=== PATIENT | female | born 1930 | race Caucasian/White ===

== ENCOUNTER 2017-08-17 00:42 | Observation (INO) | payer MEDICARE, OTHER, MEDICAID ==
[2017-08-17] MEDS: SOD CHLORIDE 0.9% 1,000 ML IV (00:57)
[2017-08-17] MEDS: ONDANSETRON 4 MG INJ IV (01:11)
[2017-08-17] MEDS: morphine 4 MG/ML VIAL IV (01:11)
[2017-08-17 01:33] LABS: ADD MAN DIFF? NO
[2017-08-17 01:37] LABS: WHITE BLOOD COUNT 14.4 10^3/ul (4.8-10.8)
[2017-08-17 01:37] LABS: BASOPHIL # 0.1 10^3/ul (0.0-0.1); BASOPHILS % 0.4 % (0.0-2.0); EOSINOPHILS % 0.3 % (0.0-7.0); HEMATOCRIT 35.3 % (37.0-47.0); HEMOGLOBIN 11.1 g/dl (12.0-16.0); LYMPHOCYTES # 1.1 10^3/ul (0.8-2.9); LYMPHOCYTES % 7.8 % (15.0-51.0); MEAN CORPUSCULAR HEMOGLOBIN 25.5 pg (29.0-33.0); MEAN CORPUSCULAR HGB CONC 31.4 g/dl (32.0-37.0); MEAN CORPUSCULAR VOLUME 81.1 fl (82.0-101.0); MEAN PLATELET VOLUME 12.1 fl (7.4-10.4); MONOCYTE # 1.3 10^3/ul (0.3-0.9); MONOCYTES % 9.3 % (0.0-11.0); NEUTROPHIL # 11.8 10^3/ul (1.6-7.5); NEUTROPHILS % 81.5 % (39.0-77.0); PLATELET COUNT 349 10^3/UL (140-415); RED BLOOD COUNT 4.35 10^6/ul (4.20-5.40); RED CELL DISTRIBUTION WIDTH 13.2 % (11.5-14.5)
[2017-08-17 02:07] LABS: ANION GAP 17 (8-16); BLOOD UREA NITROGEN 23 mg/dl (7-20); CALCIUM 8.5 mg/dl (8.4-10.2); CARBON DIOXIDE 23 mmol/L (21-31); CHLORIDE 108 mmol/L (97-110); CREATININE 0.97 mg/dl (0.44-1.00); GLUCOSE 148 mg/dl (70-220); POTASSIUM 3.5 mmol/L (3.5-5.1); SODIUM 144 mmol/L (135-144)
[2017-08-17 02:16] LABS: TROPONIN-I 0.032 ng/ml (0.000-0.120)
[2017-08-17] MEDS: ASPIRIN 81 MG TAB PO (02:47)
[2017-08-17] MEDS ORDERED: ACETAMINOPHEN 325 MG TAB PO (03:00)
[2017-08-17] MEDS ORDERED: ONDANSETRON 4 MG INJ IV (03:00)
[2017-08-17] MEDS ORDERED: morphine 2 MG INJ IV (04:30)
[2017-08-17] MEDS: PANTOPRAZOLE (EC) 40 MG TAB PO (05:58)
[2017-08-17 07:02] LABS: ADD MAN DIFF? NO
[2017-08-17 07:07] LABS: BASOPHIL # 0.1 10^3/ul (0.0-0.1); BASOPHILS % 0.4 % (0.0-2.0); EOSINOPHILS % 0.1 % (0.0-7.0); HEMATOCRIT 35.5 % (37.0-47.0); HEMOGLOBIN 10.9 g/dl (12.0-16.0); LYMPHOCYTES # 1.4 10^3/ul (0.8-2.9); LYMPHOCYTES % 10.2 % (15.0-51.0); MEAN CORPUSCULAR HEMOGLOBIN 25.5 pg (29.0-33.0); MEAN CORPUSCULAR HGB CONC 30.7 g/dl (32.0-37.0); MEAN CORPUSCULAR VOLUME 82.9 fl (82.0-101.0); MEAN PLATELET VOLUME 12.3 fl (7.4-10.4); MONOCYTE # 1.4 10^3/ul (0.3-0.9); MONOCYTES % 10.4 % (0.0-11.0); NEUTROPHIL # 10.5 10^3/ul (1.6-7.5); NEUTROPHILS % 78.5 % (39.0-77.0); PLATELET COUNT 368 10^3/UL (140-415); RED BLOOD COUNT 4.28 10^6/ul (4.20-5.40); RED CELL DISTRIBUTION WIDTH 13.2 % (11.5-14.5)
[2017-08-17 07:07] LABS: WHITE BLOOD COUNT 13.4 10^3/ul (4.8-10.8)
[2017-08-17 07:28] LABS: MAGNESIUM 2.1 mg/dl (1.7-2.5)
[2017-08-17 07:30] LABS: ANION GAP 11 (8-16); BLOOD UREA NITROGEN 22 mg/dl (7-20); CALCIUM 8.4 mg/dl (8.4-10.2); CARBON DIOXIDE 29 mmol/L (21-31); CHLORIDE 108 mmol/L (97-110); CREATININE 0.95 mg/dl (0.44-1.00); GLUCOSE 117 mg/dl (70-220); POTASSIUM 3.8 mmol/L (3.5-5.1); SODIUM 144 mmol/L (135-144)
[2017-08-17 07:37] LABS: B-TYPE NATRIURETIC PEPTIDE 1980 PG/ML (0-450); TROPONIN-I 0.018 ng/ml (0.000-0.120)
[2017-08-17 08:14] LABS: CREATINE KINASE 37 IU/L (23-200)
[2017-08-17 08:23] LABS: CK-MB 1.21 ng/ml (0.0-2.4)
[2017-08-17] MEDS: ASPIRIN (EC) 81 MG TAB PO (08:38)
[2017-08-17] MEDS: AMLODIPINE 5 MG TAB PO (08:39)
[2017-08-17] MEDS: FUROSEMIDE 40 MG INJ IV (09:15)
[2017-08-17 13:14] LABS: ADD UMIC NO; UR ASCORBIC ACID NEGATIVE (NEGATIVE); UR BILIRUBIN (Dip) NEGATIVE (NEGATIVE); UR BLOOD (Dip) NEGATIVE (NEGATIVE); UR CLARITY CLEAR (CLEAR); UR COLOR STRAW (YELLOW); UR GLUCOSE (Dip) NEGATIVE (NEGATIVE); UR KETONES (Dip) NEGATIVE (NEGATIVE); UR LEUKOCYTE ESTERASE (Dip) NEGATIVE Leu/ul (NEGATIVE); UR NITRITE (Dip) NEGATIVE (NEGATIVE); UR SPECIFIC GRAVITY (Dip) 1.006 (1.003-1.030); UR TOTAL PROTEIN (Dip) NEGATIVE (NEGATIVE); UR UROBILINOGEN (Dip) NEGATIVE (NEGATIVE)
[2017-08-17] MEDS: CEFTRIAXONE 1 GM/50 ML (PMX) 50 ML IVPB (15:00)
[2017-08-17 16:07] LABS: CREATINE KINASE 36 IU/L (23-200)
[2017-08-17 16:20] LABS: CK INDEX 2.6; CK-MB 0.92 ng/ml (0.0-2.4); TROPONIN-I 0.021 ng/ml (0.000-0.120)
[2017-08-17] MEDS: RANOLAZINE (SR) 500 MG TAB PO (20:24)
[2017-08-17] MEDS: ISOSORBIDE DINITRATE 10 MG TAB PO (20:24)
[2017-08-18] MEDS: PANTOPRAZOLE (EC) 40 MG TAB PO (05:23)
[2017-08-18] MEDS: ASPIRIN (EC) 81 MG TAB PO (08:15)
[2017-08-18] MEDS: AMLODIPINE 5 MG TAB PO (08:17)
[2017-08-18] MEDS: RANOLAZINE (SR) 500 MG TAB PO (08:18)
[2017-08-18] MEDS: ISOSORBIDE DINITRATE 10 MG TAB PO ×2 (08:18→13:56)
[2017-08-18] MEDS: FUROSEMIDE 40 MG TAB PO (08:19)
[2017-08-18 11:20] LABS: ADD MAN DIFF? NO
[2017-08-18 11:39] LABS: ABNORMAL IP MESSAGE 1; BASOPHILS % 0.2 % (0.0-2.0); HEMATOCRIT 35.3 % (37.0-47.0); HEMOGLOBIN 11.1 g/dl (12.0-16.0); LYMPHOCYTES # 1.6 10^3/ul (0.8-2.9); LYMPHOCYTES % 9.1 % (15.0-51.0); MEAN CORPUSCULAR HEMOGLOBIN 25.9 pg (29.0-33.0); MEAN CORPUSCULAR HGB CONC 31.4 g/dl (32.0-37.0); MEAN CORPUSCULAR VOLUME 82.5 fl (82.0-101.0); MEAN PLATELET VOLUME 12.2 fl (7.4-10.4); MONOCYTE # 1.7 10^3/ul (0.3-0.9); MONOCYTES % 9.6 % (0.0-11.0); NEUTROPHIL # 13.9 10^3/ul (1.6-7.5); NEUTROPHILS % 80.6 % (39.0-77.0); PLATELET COUNT 352 10^3/UL (140-415); RED BLOOD COUNT 4.28 10^6/ul (4.20-5.40); RED CELL DISTRIBUTION WIDTH 13.6 % (11.5-14.5)
[2017-08-18 11:39] LABS: WHITE BLOOD COUNT 17.2 10^3/ul (4.8-10.8)
[2017-08-18 11:41] LABS: POSITIVE DIFF @See below
[2017-08-18 12:04] LABS: B-TYPE NATRIURETIC PEPTIDE 4030 PG/ML (0-450)
[2017-08-18] MEDS: CEFTRIAXONE 1 GM/50 ML (PMX) 50 ML IVPB (13:56)
== END 2017-08-18 18:56 | disposition home or self-care (01) ==
LOC: TEL 03:26 → E/R 00:42 → TEL 02:50
DX: I95.2 Hypotension due to drugs (principal); I25.118 Atherosclerotic heart disease of native coronary artery with other forms of angina pectoris; I10 Essential (primary) hypertension; E11.9 Type 2 diabetes mellitus without complications; E78.5 Hyperlipidemia, unspecified; K21.9 Gastro-esophageal reflux disease without esophagitis; M19.90 Unspecified osteoarthritis, unspecified site; D72.829 Elevated white blood cell count, unspecified; Z90.81 Acquired absence of spleen; Z88.5 Allergy status to narcotic agent; T46.3X5A Adverse effect of coronary vasodilators, initial encounter
CPT/HCPCS: 36415; 71045; 80048; 81003; 82550; 82553; 83735; 83880; 84484; 85025; 87086; 93005; 96374; 96375; 99285-25; G0378